=== PATIENT | female | born 1935 | race Caucasian/White ===

== ENCOUNTER → 2024-07-04 09:13 | Outpatient (REF) | payer OTHER, SELFPAY | LOC: RCS 09:13 | PROVIDERS: ATTENDING PHYSICIAN Internal Medicine; FAMILY PHYSICIAN Internal Medicine | DX: I25.10 Atherosclerotic heart disease of native coronary artery without angina pectoris (principal); I44.7 Left bundle-branch block, unspecified; Z79.899 Other long term (current) drug therapy; Z95.2 Presence of prosthetic heart valve | CPT/HCPCS: 93306 ==